=== PATIENT | female | born 1955 | race Caucasian/White ===

== ENCOUNTER 2017-07-12 11:53 | Emergency (ER) | payer OTHER ==
[~2017-07-12] VITALS: Ht 160 cm; Wt 74.8 kg
[~2017-07-12 11:53] MED LIST: B COMPLEX WITH1 EACH PO; CITALOPRAM HBR40 MG PO; COLON HERBAL C1 EACH PO; CYCLOBENZAPRINE10 MG PO; LEVOTHYROXINE88 MCG PO; LIPITOR10 MG PO; LYRICA75 MG PO; MAGNESIUM400 MG PO; MELATONIN3 MG PO; NORCO 10-325 T1 EACH PO; NORCO 5-325 TA1 EACH PO; XANAX0.5 MG PO; ZINC50 M1 PO; [UNRECOGNIZED DRUG - OTHER] PO
[2017-07-12] MEDS ORDERED: METHYLPREDNISOLO4 M1 PO (12:14)
[2017-07-12] MEDS ORDERED: ZITHROMAX250 MG PO (12:14)
== END 2017-07-12 12:24 | disposition home or self-care (01) ==
LOC: ED 11:53
DX: H66.92 Otitis media, unspecified, left ear (principal); H83.02 Labyrinthitis, left ear; E03.9 Hypothyroidism, unspecified; F43.10 Post-traumatic stress disorder, unspecified; F32.9 Major depressive disorder, single episode, unspecified; Z79.899 Other long term (current) drug therapy
CPT/HCPCS: 99283

== ENCOUNTER 2017-07-20 10:18 | Emergency (ER) | payer OTHER ==
[~2017-07-20] VITALS: Ht 160 cm; Wt 74.8 kg
[~2017-07-20 10:18] MED LIST changes: +METHYLPREDNISOLO4 M1 PO; +ZITHROMAX250 MG PO
[2017-07-20] MEDS ORDERED: ROBAXIN-750750 MG PO (10:57)
== END 2017-07-20 11:35 | disposition home or self-care (01) ==
LOC: ED 10:18
DX: S16.1XXA Strain of muscle, fascia and tendon at neck level, initial encounter (principal); E03.9 Hypothyroidism, unspecified; Z79.899 Other long term (current) drug therapy; W50.0XXA Accidental hit or strike by another person, initial encounter
CPT/HCPCS: 99283